=== PATIENT | male | born 1955 | race Two or more races ===

== ENCOUNTER 2018-12-22 13:54 | Emergency (ER) | payer OTHER ==
[~2018-12-22] VITALS: Ht 170.2 cm; Wt 93.9 kg
[2018-12-22] MEDS ORDERED: LISINOPRIL20 MG ORAL (14:14)
[2018-12-22] MEDS ORDERED: IBUPROFEN600 MG ORAL (14:14)
[2018-12-22] MEDS ORDERED: ATORVASTATIN CA20 MG ORAL (14:14)
[2018-12-22] MEDS ORDERED: SPRYCEL100 MG PO (14:14)
--- NOTE | 2018-12-22 14:23 | NUR ---
ED Nurse Note: Called u/s tech re throacentesis.
--- NOTE | 2018-12-22 14:40 | Diagnostic Imaging Report ---
Indication: Dyspnea Comparison: 10/07/1999 2 views of the chest obtained. Findings: There is a convex density at the right lung base with a larger lateral component consistent with a pleural effusion. The configuration is such that the the effusion may be complex and/or loculated. There may be a larger subpulmonic component and atelectasis largely accounting for the density. Ultrasound evaluation is suggested to further assess especially if considering thoracentesis. Mild interstitial edema suspected. The heart is borderline enlarged. There is slight 20 of the left costophrenic angle. Bones are unremarkable. IMPRESSION: Right pleural effusion and atelectasis. The effusion may be loculated or complex. Ultrasound evaluation suggested if considering diagnostic or therapeutic thoracentesis. Pulmonary vascular congestion
[2018-12-22 14:56] LABS: BASOPHILS % (AUTO) 1.1 % (0.0-2.0); EOSINOPHILS % (AUTO) 0.7 % (0.0-3.0); HEMATOCRIT 39.5 % (42.0-52.0); HEMOGLOBIN 13.9 G/DL (14.2-18.0); LYMPHOCYTES % (AUTO) 26.8 % (20.0-45.0); MEAN CORPUSCULAR VOLUME 97 FL (80-99); MONOCYTES % (AUTO) 6.2 % (1.0-10.0); NEUTROPHILS % (AUTO) 65.1 % (45.0-75.0); PLATELET COUNT 130 K/UL (150-450); RED BLOOD COUNT 4.06 M/UL (4.70-6.10); RED CELL DISTRIBUTION WIDTH 12.8 % (11.6-14.8); WHITE BLOOD COUNT 4.7 K/UL (4.8-10.8)
[2018-12-22 15:05] LABS: ANION GAP 7 mmol/L (5-15); BLOOD UREA NITROGEN 9 mg/dL (7-18); CALCIUM 9.3 MG/DL (8.5-10.1); CARBON DIOXIDE 30 MMOL/L (21-32); CHLORIDE 103 MMOL/L (98-107); CREATININE 0.9 MG/DL (0.55-1.30); POTASSIUM 3.2 MMOL/L (3.5-5.1); SODIUM 140 MMOL/L (136-145)
[2018-12-22 15:17] LABS: ALANINE AMINOTRANSFERASE 41 U/L (12-78); ALBUMIN 4.5 G/DL (3.4-5.0); ALBUMIN/GLOBULIN RATIO 1.2 (1.0-2.7); ALKALINE PHOSPHATASE 77 U/L (46-116); ASPARTATE AMINO TRANSFERASE 41 U/L (15-37); BILIRUBIN,TOTAL 1.1 MG/DL (0.2-1.0)
[2018-12-22 15:19] LABS: BILIRUBIN,DIRECT 0.2 MG/DL (0.0-0.3)
[2018-12-22 15:46] VITALS: BP 189/102
--- NOTE | 2018-12-22 16:33 | Emergency Room Report ---
History of Present Illness General Chief Complaint: Dyspnea/Respdistress Source: Patient, Family Member, PMD Present Illness HPI This patient was sent in by his primary care physician. He has a history of leukemia and about a month ago was diagnosed with a pleural effusion. He had not yet had a thoracentesis. He went for routine visit with his primary care physician and had describes some dyspnea on exertion. Underwent x-ray there in the pleural effusion was identified on the right side. The patient presents for thoracentesis. He denies recent illness. Denies fever chills. He denies cough or congestion. Denies abdominal pain. He states he currently has no difficulty breathing or chest pain. He states his symptoms are primarily with walking. He has no other complaints. Allergies: Coded Allergies: No Known Allergies (Verified , 10/07/05) Patient History Past Medical History: see triage record, HTN, other - Leukemia Social History: Denies: smoking, alcohol use, drug use Reviewed Nursing Documentation: PMH: Agreed; PSxH: Agreed Nursing Documentation-PMH Hx Hypertension: Yes Review of Systems All Other Systems: negative except mentioned in HPI Physical Exam Vital Signs Date Time Temp Pulse Resp B/P (MAP) Pulse Ox O2 Delivery O2 Flow Rate FiO2 12/22/18 14:07 98.6 83 19 207/112 (143) 92 Room Air Sp02 EP Interpretation: reviewed, normal General Appearance: no apparent distress, alert, GCS 15, non-toxic Head: normocephalic, atraumatic Eyes: bilateral eye normal inspection, bilateral eye PERRL ENT: hearing grossly normal, normal pharynx, no angioedema, normal voice Neck: full range of motion, supple/symm/no masses Respiratory: chest non-tender, lungs clear, normal breath sounds, no respiratory distress, no retraction, no accessory muscle use, speaking full sentences Cardiovascular #1: regular rate, rhythm, no edema Gastrointestinal: normal bowel sounds, non tender, soft, non-distended, no guarding, no rebound Rectal: deferred Musculoskeletal: back normal, gait/station normal, normal range of motion, non- tender Neurologic: alert, oriented x3, responsive, motor strength/tone normal, sensory intact, speech normal Psychiatric: judgement/insight normal, memory normal, mood/affect normal, no suicidal/homicidal ideation Skin: other - Facial flushing Medical Decision Making Diagnostic Impression: Primary Impression: Pleural effusion ER Course This patient has a known pleural effusion on the right lung. I did plan on obtaining a thoracentesis here in the emergency department, however, the patient 's insurance company called and requested that he undergo an outpatient thoracentesis at an outpatient clinic. The radiologist was very busy and there was going to be an extended wait for this procedure. The patient was in no respiratory distress and did not need an emergency thoracentesis. Patient was discharged with the marine designer for the insurance company stating that she would call the patient and arrange for a thoracentesis today or tomorrow. The marine designer states that it would occur within the next 24 hours. The patient was given close return precautions and follow-up instructions. Laboratory Tests Test 12/22/18 14:38 White Blood Count 4.7 K/UL (4.8-10.8) L Red Blood Count 4.06 M/UL (4.70-6.10) L Hemoglobin 13.9 G/DL (14.2-18.0) L Hematocrit 39.5 % (42.0-52.0) L Mean Corpuscular Volume 97 FL (80-99) Mean Corpuscular Hemoglobin 34.3 PG (27.0-31.0) H Mean Corpuscular Hemoglobin Concent 35.2 G/DL (32.0-36.0) Red Cell Distribution Width 12.8 % (11.6-14.8) Platelet Count 130 K/UL (150-450) L Mean Platelet Volume 4.9 FL (6.5-10.1) L Neutrophils (%) (Auto) 65.1 % (45.0-75.0) Lymphocytes (%) (Auto) 26.8 % (20.0-45.0) Monocytes (%) (Auto) 6.2 % (1.0-10.0) Eosinophils (%) (Auto) 0.7 % (0.0-3.0) Basophils (%) (Auto) 1.1 % (0.0-2.0) Prothrombin Time 10.7 SEC (9.30-11.50) Prothrombin Time INR 1.0 (0.9-1.1) PTT 26 SEC (23-33) Sodium Level 140 MMOL/L (136-145) Potassium Level 3.2 MMOL/L (3.5-5.1) L Chloride Level 103 MMOL/L (98-107) Carbon Dioxide Level 30 MMOL/L (21-32) Anion Gap 7 mmol/L (5-15) Blood Urea Nitrogen 9 mg/dL (7-18) Creatinine 0.9 MG/DL (0.55-1.30) Estimate Glomerular Filtration Rate > 60 mL/min (>60) Glucose Level 126 MG/DL (74-106) H Calcium Level 9.3 MG/DL (8.5-10.1) Total Bilirubin 1.1 MG/DL (0.2-1.0) H Direct Bilirubin 0.2 MG/DL (0.0-0.3) Aspartate Amino Transferase (AST) 41 U/L (15-37) H Alanine Aminotransferase (ALT) 41 U/L (12-78) Alkaline Phosphatase 77 U/L (46-116) Total Protein 8.2 G/DL (6.4-8.2) Albumin 4.5 G/DL (3.4-5.0) Globulin 3.7 g/dL Albumin/Globulin Ratio 1.2 (1.0-2.7) Chest X-Ray Diagnostic Results Chest X-Ray Diagnostic Results : Chest X-Ray Ordered: Yes # of Views/Limited/Complete: 1 View Indication: Shortness of Breath EP Interpretation: Yes Interpretation: other - R. pleural effusion Impression: Other - See above Electronically Signed by: Supriya Vega Do Last Vital Signs Date Time Temp Pulse Resp B/P (MAP) Pulse Ox O2 Delivery O2 Flow Rate FiO2 12/22/18 15:46 98.6 82 19 189/102 92 Room Air Status: improved Disposition: HOME, SELF-CARE Condition: Improved Referrals: [facility],REFERRING (PCP) Supriya Vega DO Dec 22, 2018 16:33
--- NOTE | 2018-12-22 16:35 | NUR ---
ER DISCHARGE NOTE: Patient is cleared to be discharged per ERMD, pt is aox4, on room air, with stable vital signs. pt was given dc and prescription instructions, pt was able to verbalize understanding, pt id band and iv site removed without complications. pt is able to ambulate with steady gait. pt took all belongings.
[2018-12-22 16:39] VITALS: BP 189/102
== END 2018-12-22 16:41 | disposition home or self-care (01) ==
LOC: EMR 14:35
DX: J90 Pleural effusion, not elsewhere classified (principal); I10 Essential (primary) hypertension; Z85.6 Personal history of leukemia
CPT/HCPCS: 36415; 71046; 80053; 82248; 85025; 85610; 85730; 99283

== ENCOUNTER 2019-01-30 15:32 | Emergency (ER) | payer OTHER ==
[~2019-01-30] VITALS: Ht 170.2 cm; Wt 90.7 kg
[~2019-01-30 15:32] MED LIST: ATORVASTATIN CA20 MG ORAL; IBUPROFEN600 MG ORAL; LISINOPRIL20 MG ORAL; SPRYCEL100 MG PO
--- NOTE | 2019-01-30 15:45 | NUR ---
ED Nurse Note: Patient walked into ED c/o high blood pressure patient was seeing Dr Perez across the street, was referred to ED as patient reports dizziness started about 1 hour prior to arrival to ED. patient is alert awake x4 ambulatory, breathing unlabored and even at this time. patient placed on a hospital gown and placed on a laboratory monitor.
[2019-01-30] MEDS ORDERED: Labetalol 5mg/ml 20ml vial IV ONE ×2 (16:00→17:45)
[2019-01-30 16:23] LABS: APPEARANCE,URINE CLEAR; BILIRUBIN, URINE NEGATIVE (NEGATIVE); COLOR,URINE PALE YELLOW; GLUCOSE, URINE (UA) NEGATIVE (NEGATIVE); KETONES,URINE NEGATIVE (NEGATIVE); LEUKOCYTE ESTERASE ,URINE NEGATIVE (NEGATIVE); NITRITE,URINE NEGATIVE (NEGATIVE); PH,URINE 7 (4.5-8.0); PROTEIN,URINE 3+ (NEGATIVE); UROBILINOGEN,URINE NORMAL MG/DL (0.0-1.0)
[2019-01-30 16:25] LABS: BASOPHILS % (AUTO) 1.2 % (0.0-2.0); EOSINOPHILS % (AUTO) 1.5 % (0.0-3.0); HEMATOCRIT 41.9 % (42.0-52.0); HEMOGLOBIN 15.5 G/DL (14.2-18.0); LYMPHOCYTES % (AUTO) 51.5 % (20.0-45.0); MEAN CORPUSCULAR VOLUME 94 FL (80-99); MONOCYTES % (AUTO) 4.7 % (1.0-10.0); NEUTROPHILS % (AUTO) 41.1 % (45.0-75.0); PLATELET COUNT 133 K/UL (150-450); RED BLOOD COUNT 4.48 M/UL (4.70-6.10); RED CELL DISTRIBUTION WIDTH 12.2 % (11.6-14.8); WHITE BLOOD COUNT 6.2 K/UL (4.8-10.8)
[2019-01-30 16:26] LABS: INR 0.9 (0.9-1.1)
--- NOTE | 2019-01-30 16:26 | Diagnostic Imaging Report ---
Indication: Dyspnea Comparison: 12/22/2018 A single view chest radiograph was obtained. Findings: Pulmonary vascular congestion demonstrated. Pleural thickening versus a small amount of fluid on the right noted. Heart is enlarged. IMPRESSION: Suspected the mild CHF
--- NOTE | 2019-01-30 16:37 | Diagnostic Imaging Report ---
Indication: Headache Technique: Contiguous 5 mm thick transaxial imaging of the head obtained in a Siemens Sensation [address] scanner. Soft tissue and bone windows generated. Automatic Exposure Control was utilized. Total Dose length Product (DLP): [address] Dose Index Volume (CTDIvol): 60 mGy Comparison: none Findings: The size and configuration of the cortical sulci, basal cisterns, and ventricles are within normal limits for age. There is no mass effect, midline shift, or edema identified. There is no evidence of acute hemorrhage or abnormal intra-axial or extra-axial fluid collections. The bones and soft tissues are unremarkable. Impression: No mass effect, edema or acute bleed. The CT scanner at [facility] is accredited by the [employer] and the scans are performed using dose optimization techniques as appropriate to a performed exam including Automatic Exposure control.
--- NOTE | 2019-01-30 16:43 | Emergency Room Report ---
History of Present Illness General Chief Complaint: Hypertension Source: Patient Present Illness HPI 63-year-old male history of leukemia, history of hypertension presents with generalized headache, body aches x1 day, patient had a systolic blood pressure of [address] patient denies any alleviating factors aggravating factors appear to be blood pressure, severity is moderate, constant, patient denies any current chest pain shortness of breath no nausea no vomiting, he does not endorse a mild headache and generalized body aches. Patient presents for evaluation of his high blood pressure Allergies: Coded Allergies: No Known Allergies (Verified , 10/07/05) Patient History Past Medical History: see triage record Reviewed Nursing Documentation: PMH: Agreed; PSxH: Agreed Nursing Documentation-PMH Past Medical History: No History, Except For Hx Hypertension: Yes Review of Systems All Other Systems: negative except mentioned in HPI Physical Exam Vital Signs Date Time Temp Pulse Resp B/P (MAP) Pulse Ox O2 Delivery O2 Flow Rate FiO2 01/30/19 15:40 98.2 73 18 257/107 (157) 94 Room Air Sp02 EP Interpretation: reviewed, normal General Appearance: well appearing, no apparent distress, alert Head: normocephalic, atraumatic Eyes: bilateral eye PERRL, bilateral eye EOMI ENT: uvula midline, moist mucus membranes Neck: supple, thyroid normal, supple/symm/no masses Respiratory: no respiratory distress, no retraction, no accessory muscle use, decreased breath sounds Cardiovascular #1: normal peripheral pulses, regular rate, rhythm, no edema, no gallop, no murmur Gastrointestinal: non tender, soft, no guarding, no rebound Musculoskeletal: normal inspection Neurologic: alert, oriented x3 Psychiatric: mood/affect normal Skin: no rash, warm/dry Procedures Critical Care Time Critical Care Time Given the critical condition in which the patient arrived, the patient was immediately assessed by myself and the nurse, and cardiac monitoring initiated due to the potential for rapid decompensation of the patient's clinical condition. During the course of the patient's stay, I spent a considerable amount of time at the bedside performing serial re-evaluations of the patient's hemodynamic and clinical status because of the recognized potential threat to life or limb in this condition. I then had a chance to review not only all of the available current laboratory and radiographic studies obtained today, but I also reviewed old records available to me at the time. Additionally, any ancillary information available including elevator serviceman records were reviewed. Sequential vital signs were obtained. Critical Care time of 36 minutes was performed exclusive of billable procedures. Medical Decision Making Diagnostic Impression: Primary Impression: NSTEMI (non-ST elevated myocardial infarction) Additional Impression: Hypertensive emergency ER Course Patient with high blood pressure greater than 250, concerning for hypertensive emergency/urgency differential diagnosis includes CHF, malignant hypertension Labs showed no evidence of renal injury, CT brain negative, patient found to have an elevated troponin as well as some congestion on x-ray Lasix given, multiple rounds of vasoactive medications were given in order to control the blood pressure Multiple re-evaluations blood pressure was able to be reduced to [address] Carranza at 7:01 PM accepted patient to [facility] Laboratory Tests Test 01/30/19 15:50 White Blood Count 6.2 K/UL (4.8-10.8) Red Blood Count 4.48 M/UL (4.70-6.10) L Hemoglobin 15.5 G/DL (14.2-18.0) Hematocrit 41.9 % (42.0-52.0) L Mean Corpuscular Volume 94 FL (80-99) Mean Corpuscular Hemoglobin 34.6 PG (27.0-31.0) H Mean Corpuscular Hemoglobin Concent 37.0 G/DL (32.0-36.0) H Red Cell Distribution Width 12.2 % (11.6-14.8) Platelet Count 133 K/UL (150-450) L Mean Platelet Volume 6.4 FL (6.5-10.1) L Neutrophils (%) (Auto) 41.1 % (45.0-75.0) L Lymphocytes (%) (Auto) 51.5 % (20.0-45.0) H Monocytes (%) (Auto) 4.7 % (1.0-10.0) Eosinophils (%) (Auto) 1.5 % (0.0-3.0) Basophils (%) (Auto) 1.2 % (0.0-2.0) Prothrombin Time 9.9 SEC (9.30-11.50) Prothrombin Time INR 0.9 (0.9-1.1) PTT 26 SEC (23-33) Urine Color Pale yellow Urine Appearance Clear Urine pH 7 (4.5-8.0) Urine Specific Friona 1.010 (1.005-1.035) Urine Protein 3+ (NEGATIVE) H Urine Glucose (UA) Negative (NEGATIVE) Urine Ketones Negative (NEGATIVE) Urine Blood 2+ (NEGATIVE) H Urine Nitrite Negative (NEGATIVE) Urine Bilirubin Negative (NEGATIVE) Urine Urobilinogen Normal MG/DL (0.0-1.0) Urine Leukocyte Esterase Negative (NEGATIVE) Urine RBC 0-2 /HPF (0 - 0) H Urine WBC 0-2 /HPF (0 - 0) Urine Squamous Epithelial Cells None /LPF (NONE/OCC) Urine Bacteria Occasional /HPF (NONE) Sodium Level 139 MMOL/L (136-145) Potassium Level 3.6 MMOL/L (3.5-5.1) Chloride Level 101 MMOL/L (98-107) Carbon Dioxide Level 26 MMOL/L (21-32) Anion Gap 12 mmol/L (5-15) Blood Urea Nitrogen 9 mg/dL (7-18) Creatinine 0.9 MG/DL (0.55-1.30) Estimate Glomerular Filtration Rate > 60 mL/min (>60) Glucose Level 121 MG/DL (74-106) H Calcium Level 9.1 MG/DL (8.5-10.1) Total Bilirubin 0.7 MG/DL (0.2-1.0) Aspartate Amino Transferase (AST) 43 U/L (15-37) H Alanine Aminotransferase (ALT) 42 U/L (12-78) Alkaline Phosphatase 88 U/L (46-116) Troponin I 0.070 ng/mL (0.000-0.056) Pro-B-Type Natriuretic Peptide 320 pg/mL (0-125) H Total Protein 8.3 G/DL (6.4-8.2) H Albumin 4.5 G/DL (3.4-5.0) Globulin 3.8 g/dL Albumin/Globulin Ratio 1.2 (1.0-2.7) Lipase 158 U/L (73-393) Urine Opiates Screen Negative (NEGATIVE) Urine Barbiturates Screen Negative (NEGATIVE) Phencyclidine (PCP) Screen Negative (NEGATIVE) Urine Amphetamines Screen Negative (NEGATIVE) Urine Benzodiazepines Screen Negative (NEGATIVE) Urine Cocaine Screen Negative (NEGATIVE) Urine Marijuana (THC) Screen Negative (NEGATIVE) EKG Diagnostic Results EKG Time: 16:02 EP Interpretation: NSR, Rate 68, QTc 472, RBBB, no acute ST elevations Rhythm Strip Diag. Results Rhythm Strip Time: 17:01 EP Interpretation: yes Rate: 64 Rhythm: NSR, no PVC's, no ectopy Chest X-Ray Diagnostic Results Chest X-Ray Diagnostic Results : Chest X-Ray Ordered: Yes # of Views/Limited/Complete: 1 View Indication: Other - Preoperative EP Interpretation: Yes Interpretation: other - Pulmonary edema, CHF Impression: Other - Pulmonary edema CHF Electronically Signed by: Kodi Priest MD CT/MRI/US Diagnostic Results CT/MRI/US Diagnostic Results : Impression Procedure: CT Head no Contrast Indication: Headache Technique: Contiguous 5 mm thick transaxial imaging of the head obtained in a Siemens Sensation [address] scanner. Soft tissue and bone windows generated. Automatic Exposure Control was utilized. Total Dose length Product (DLP): [address] Dose Index Volume (CTDIvol): 60 mGy Comparison: none Findings: The size and configuration of the cortical sulci, basal cisterns, and ventricles are within normal limits for age. There is no mass effect, midline shift, or edema identified. There is no evidence of acute hemorrhage or abnormal intra- axial or extra-axial fluid collections. The bones and soft tissues are unremarkable. Impression: No mass effect, edema or acute bleed. The CT scanner at [facility] is accredited by the [employer] and the scans are performed using dose optimization techniques as appropriate to a performed exam including Automatic Exposure control. Dictated By: Db Tucker MD Electronically Signed By: Db Tucker MD Signed Date/Time 01/30/19 1632 Last Vital Signs Date Time Temp Pulse Resp B/P (MAP) Pulse Ox O2 Delivery O2 Flow Rate FiO2 01/30/19 15:40 98.2 73 18 257/107 (157) 94 Room Air Disposition: XFER SHT-TRM HOSP Condition: Serious Kodi Priest MD Jan 30, 2019 16:43
[2019-01-30 16:45] VITALS: BP 236/105
[2019-01-30] MEDS ORDERED: Enoxaparin 100mg Inj SUBQ ONE (17:00)
[2019-01-30 17:14] LABS: ANION GAP 12 mmol/L (5-15); BLOOD UREA NITROGEN 9 mg/dL (7-18); CALCIUM 9.1 MG/DL (8.5-10.1); CARBON DIOXIDE 26 MMOL/L (21-32); CHLORIDE 101 MMOL/L (98-107); CREATININE 0.9 MG/DL (0.55-1.30); POTASSIUM 3.6 MMOL/L (3.5-5.1); SODIUM 139 MMOL/L (136-145)
[2019-01-30 17:23] VITALS: BP 193/86
--- NOTE | 2019-01-30 17:23 | NUR ---
ED Nurse Note: notified Dr. Priest regarding the patient's BP 193/86 and that patient reports relief from pain and distress at this time. patient is resting comfortably in bed, son at bedside.
[2019-01-30 17:26] LABS: ALANINE AMINOTRANSFERASE 42 U/L (12-78); ALBUMIN 4.5 G/DL (3.4-5.0); ALBUMIN/GLOBULIN RATIO 1.2 (1.0-2.7); ALKALINE PHOSPHATASE 88 U/L (46-116); ASPARTATE AMINO TRANSFERASE 43 U/L (15-37); BILIRUBIN,TOTAL 0.7 MG/DL (0.2-1.0)
[2019-01-30] MEDS ORDERED: Nitroglycerin 2% oint pkt TOPIC ONE (17:45)
[2019-01-30 18:52] VITALS: BP 172/65
--- NOTE | 2019-01-30 18:53 | NUR ---
ED Nurse Note: patient is resting comfortably in bed, son at bedside
--- NOTE | 2019-01-30 19:08 | NUR ---
HAND-OFF: report given to Natalee Crane RN, endorsed all plan of care to her.
--- NOTE | 2019-01-30 19:20 | NUR ---
ED Nurse Note: Recieved reprot from am nurse to resume care, pt in bed awake, alert and orieneted x 4, on cardiac monitoring, pt b/p has decreased, meds given effective, pt denies chest pain or any pain, no sob or labored breathing, has patent saline lock, pt [facility] for [facility], will resume care as ordered and continue to closely monitor.
--- NOTE | 2019-01-30 20:23 | NUR ---
report given to augie mcgarry at [facility] patient will be transferd via acls to room 619. denies any chest pain or shortness of breath,
[2019-01-30 20:24] VITALS: BP 175/80
== END 2019-01-30 21:22 | disposition short-term general hospital (02) ==
LOC: EMR 16:22
DX: I21.4 Non-ST elevation (NSTEMI) myocardial infarction (principal); I16.1 Hypertensive emergency; I51.7 Cardiomegaly
CPT/HCPCS: 36415; 70450; 71045; 80053; 80307; 81003; 83690; 83880; 84484; 85025; 85610; 85730; 93005; 96372; 96374; 96375; 96376; 99291; J0360; J1650; J1940